=== PATIENT | female | born 1990 ===

== ENCOUNTER 2020-02-18 08:32 | Outpatient (CLI) | payer OTHER ==
[~2020-02-18 08:32] MED LIST: ASPIR 8181 MG PO; FOLIC ACID1 MG PO; LIPITOR20 MG PO; LOSARTAN POTASS25 MG PO; POLY119PG PO; SURFAK240 M1 PO; ULTRACET PO; [UNRECOGNIZED DRUG - SUPPLY] VG
== END 2020-02-18 08:37 | disposition home or self-care (01) ==
LOC: SONOGRAMA 08:32
PROVIDERS: ATTEND Pathology Anatomic Pathology & Clinical Pathology
DX: E03.8 Other specified hypothyroidism (principal)